=== PATIENT | male | born 1985 | race African-American/Black ===

== ENCOUNTER 2018-09-27 00:16 | Emergency (ER) | payer MEDICAID ==
[~2018-09-27] VITALS: Ht 182.9 cm; Wt 91.0 kg
[2018-09-27 05:04] VITALS: BP 112/65
== END 2018-09-27 06:05 | disposition left against medical advice (07) ==
LOC: ER 00:16
DX: F41.9 Anxiety disorder, unspecified (principal); E11.9 Type 2 diabetes mellitus without complications; E78.00 Pure hypercholesterolemia, unspecified; I10 Essential (primary) hypertension
CPT/HCPCS: 99283; 99284